=== PATIENT | female | born 1995 | race Caucasian/White ===

== ENCOUNTER 2020-06-29 14:59 | Emergency (ER) | payer OTHER ==
[2020-06-29 15:12] VITALS: TEMP 98.6
--- NOTE | 2020-06-29 15:53 | XR ---
EXAMINATION TYPE: XR forearm RT DATE OF EXAM: 06/29/2020 CLINICAL HISTORY: pain TECHNIQUE: Frontal and lateral images of the right forearm are obtained. COMPARISON: None. FINDINGS: There is no acute fracture/dislocation evident. The joint spaces appear within normal limi ts. The overlying soft tissue appears unremarkable. IMPRESSION: There is no acute fracture or dislocation. ICD 10 NO FRACTURE, INITIAL EVALUATION
[2020-06-29] MEDS ORDERED: SULFAMETHOX-TMP 800-160MG 1 EACH TAB PO STA (16:30)
[2020-06-29] MEDS ORDERED: CEPHALEXIN 500 MG CAP PO STA (16:30)
--- NOTE | 2020-06-29 20:24 | ED ---
Overdose HPI - General Chief Complaint: Overdose Stated Complaint: Overdose Source: EMS Mode of arrival: EMS Limitations: altered mental status - History of Present Illness Initial Comments: Patient is a 25-year-old female with past medical history of illicit substance abuse presents to the emergency department from [place]. She remained portably attempted to get high by taking in a fourth of a bar of Xanax and $150 worth of fentanyl. States that for the past couple of days she has been using approximately $100 a fentanyl per day. States she used last around noon and this was an attempt to get high before going to rehab. States she's been in rehab for times before. When she was checking in to [place] she appeared somnolent and therefore EMS was called. EMS found the patient have a GCS of 14. Narcan was not administered as the patient was being combative for them. EMS does mention that the patient may have fentanyl packed in her vagina or rectum. They do not disclose where this allegation came from. The patient denies this. She denies an attempt to harm her self. Patient does have notable swelling to her right forearm. Denies any fevers or chills. Denies using any other substances to include alcohol. Denies concern for . No other alleviating, precipitating or modifying factors - Related Data Home Medications Medication Instructions Recorded Confirmed Ergocalciferol (Vitamin D2) 1,250 mcg PO WEEKLY 06/29/20 06/29/20 [Drisdol (50,000 Iu)] Gabapentin [Neurontin] 400 mg PO TID PRN 06/29/20 06/29/20 Previous Rx's Medication Instructions Recorded Sulfamethox-Tmp 800-160Mg [Bactrim 2 tab PO Q12HR #40 tab 06/29/20 Ds] Allergies Allergy/AdvReac Type Severity Reaction Status Date / Time No Known Allergies Allergy Verified 06/29/20 17:33 Review of Systems ROS Statement: Those systems with pertinent positive or pertinent negative responses have been documented in the HPI. ROS Other: All systems not noted in ROS Statement are negative. Past Medical History Past Medical History: Unable to Obtain History of Any Multi-Drug Resistant Organisms: Unobtainable Past Surgical History: Unable to Obtain Past Psychological History: Unable to Obtain Smoking Status: Current every day smoker General Exam Limitations: altered mental status Course Vital Signs 06/29/20 06/29/20 06/29/20 15:06 17:33 21:07 Temperature 98.6 F Pulse Rate 72 69 64 Respiratory 18 16 15 Rate Blood Pressure 92/64 113/78 119/74 O2 Sat by Pulse 98 98 97 Oximetry Medical Decision Making - Medical Decision Making Upon arrival the patient is placed into room 14. A thorough history and physical exam was performed. Patient was sent for an x-ray of her right forearm due to the swelling. No retained foreign bodies. Patient was given a dose of Bactrim and Keflex. I did request a urine sample however the patient refused. She does refuse the fact that she has any illicit substance in her vagina or rectum. Refusing any genital exams. Patient is watched for several hours and there is no somnolence noted. Patient is easily arousable each time she is evaluated. At this time and do feel that the patient is stable for discharge back to [facility]. She is given prescription for Bactrim. [place] does present to the ER to pickup driver the patient. She is to return for any new or worsening symptoms Disposition Clinical Impression: Accidental drug overdose, Right arm cellulitis Disposition: HOME SELF-CARE Condition: Stable Instructions (If sedation given, give patient instructions): Cellulitis (ED), Adult Overdose (ED) Additional Instructions: You are being sent back to [place] for treatment. Take the antibiotics as directed. Return to the ED for any new or worsening symptoms. Prescriptions: Sulfamethox-Tmp 800-160Mg [Bactrim Ds] 2 tab PO Q12HR #40 tab Is patient prescribed a controlled substance at d/c from ED?: No Referrals: None,Stated [Primary Care Provider] - 1-2 days Time of Disposition: 20:23
[2020-06-29 21:08] VITALS: BP 119/74; PULSE 64; RESP 15
== END 2020-06-29 21:58 | disposition home or self-care (01) ==
LOC: EC 14:59
DX: T42.4X1A Poisoning by benzodiazepines, accidental (unintentional), initial encounter (principal); L03.113 Cellulitis of right upper limb; F17.200 Nicotine dependence, unspecified, uncomplicated
CPT/HCPCS: 99284